=== PATIENT | male | born 1965 | race Caucasian/White ===

== ENCOUNTER → 2023-09-27 06:20 | Day surgery (SDC) | payer BC, SELFPAY | LOC: GI 06:20 | PROVIDERS: ATTENDING PHYSICIAN Internal Medicine Gastroenterology | DX: Z12.11 Encounter for screening for malignant neoplasm of colon (principal); D12.0 Benign neoplasm of cecum; D12.5 Benign neoplasm of sigmoid colon; K57.30 Diverticulosis of large intestine without perforation or abscess without bleeding; D12.8 Benign neoplasm of rectum; K64.8 Other hemorrhoids; Z83.710 Family history of adenomatous and serrated polyps | CPT/HCPCS: 45385; 88305; 71046; 80053; 81003; 83605; 85025; 87040; 93005 ==

== ENCOUNTER 2023-09-28 04:23 | Inpatient (IN) | payer BC, SELFPAY ==
[2023-09-27 21:18] VITALS: BP 146/68
[2023-09-27] MEDS: TYLENOL 1000 MG PO (21:45)
[2023-09-27 21:56] LABS: Urine Albumin Negative (Neg - Trace); Urine Bilirubin Negative (Negative); Urine Character Clear (Clear); Urine Color Yellow; Urine Glucose Negative (Negative); Urine Ketone Negative (Negative); Urine Leukocyte Negative (Negative); Urine Nitrite Negative (Negative); Urine Occult Blood Negative (Negative); Urine Specific Gravity 1.015 (<1.030); Urine Urobilinogen Negative (Neg - 1+)
[2023-09-27 22:30] VITALS: BMI 26.8
[2023-09-27 22:39] VITALS: BP 124/68
--- NOTE | 2023-09-27 22:44 | ED.GENMED ---
History of Present Illness
General
Chief Complaint: Fever
Source: patient and family
Time Seen by Provider: 09/27/23 22:13
Travel History
Have you had any contact with someone who has COVID-19?: No
Do you have any symptoms of coronavirus? Fever > 100 degrees, chills, cough, shortness of breath, sore throat, loss of taste or smell, muscle aches, or headache?: Yes
Symptoms:: fever
History of Present Illness
History of Present Illness:
Pleasant 58-year-old male presents with fever. He had a colonoscopy this morning and had 4 polypectomies. He states that he left feeling 'unwell' but denied fever until this evening. Around 7 PM he developed fever. He does state he had a normal
bowel movement at some point this afternoon. Denies chest pain or shortness of breath. Patient does have a history of hyperlipidemia and glaucoma.
Vital signs are stable. Patient not hypoxic
Nursing note reviewed. I agree with nursing documentation up to this point in time.
Home Meds and allergies reviewed.
NUMBER AND COMPLEXITY OF PROBLEMS ADDRESSED AT THE ENCOUNTER
� Chronic conditions affecting care: Acute problem
� Acute Exacerbation and/or Progression of Chronic Illness:
� Differential Diagnosis includes: Infection from polypectomy, viral syndrome, post polypectomy syndrome
AMOUNT AND/OR COMPLEXITY OF DATA TO BE REVIEWED AND ANALYZED
I performed an independent evaluation of the following and my interpretation is:
EKG: EKG shows normal sinus rhythm rate 86 with normal intervals, normal axis. No evidence of acute ischemia present. There is a right bundle branch block present. No old EKGs available for comparison.
CT:
X-rays: Chest x-ray is negative
Ultrasound:
Laboratory Studies: 13.7 white blood cell count
Other:
Review of other/old records: Colonoscopy from this morning:
Impression: - One 8 mm polyp in the cecum, removed with a hot
snare. Resected and retrieved.
- One 8 mm polyp in the cecum, removed with a hot
snare. Resected and retrieved.
- One 7 mm polyp in the sigmoid colon, removed with a
hot snare. Resected and retrieved.
- One 8 mm polyp in the rectum, removed with a hot
snare. Resected and retrieved.
- Diverticulosis in the entire examined colon.
- Internal hemorrhoids.
- The examination was otherwise normal.
Clinical information was obtained by an independent historian: is present at the bedside
Prescriptions/Medications Considered but not given:
Further testing considered but not performed:
RISK OF COMPLICATIONS AND/OR MORBIDITY OR MORTALITY OF PATIENT MANAGEMENT
Social determinants of health affecting care: Good Social Support
Discussion with other providers: Spoke with computer animator Dr. George. He is aware of pt.
Escalation of care including admission/observation vs risk of discharge considered: Patient to be brought into the hospital service for continued observation.
CRITICAL CARE NOTE:
Total Time (exclusive of procedures):
Update:
Review of Systems
Review of Systems
Allergies reviewed?: Yes
Other source history: family
All Other Systems: ROS reviewed and negative except as documented in HPI and ROS
Constitutional: Reports fever and fatigue
EENT: Reports no symptoms
Respiratory: Reports no symptoms
Cardiac: Reports no symptoms
ABD/GI: Reports abdominal pain; Denies vomiting, diarrhea, constipated, bloody stools or black stools
: Reports no symptoms
Musculoskeletal: Reports no symptoms
Skin: Reports no symptoms
Neurological: Reports no symptoms
Endocrine: Reports no symptoms
Hematologic/Lymphatic: Reports no symptoms
Psychiatric: Reports no symptoms
Phy Exam
General Physical Exam
General Presentation: well appearing and mild distress
General Skin: warm, dry and feels hot
General Habitus: normal
General Mental: alert
General Hydration: appears well hydrated
ENT Exam
ENT Exam: EOMI, pharynx normal, neck supple and normocephalic
Eye Exam
Eye Exam: PERRL, cornea clear and conjunctiva normal
Cardiovascular Exam
Cardiovascular Exam: regular rate/rhythm, no edema, no murmur and normal peripheral pulses
Pulmonary Exam
Pulmonary Exam: lungs clear, no respiratory distress, no rales, no crackles, no rhonchi, no stridor, no wheezing and no cough
Gastrointestinal Exam
Gastrointestinal Exam: normal bowel sounds
Palpation: generalized: Minimal tenderness
Neurological Exam
Neurological Exam: alert, oriented x3, no motor deficits and speech normal
Musculoskeletal Exam
Musculoskeletal Exam: full ROM and no edema
Skin Exam
Skin Exam: normal color, warm/dry, no rash and no petechia
Psychiatric Exam
Psychiatric Exam: normal mood/affect
Course
Orders/Labs/Results
Orders:
Orders
09/27/23 21:25
Electrocardiogram (*1) Urgent
Reason for Study: Other
Other Reason for Exam: Possible Sepsis
Cardiac Monitoring- Treatment ONCE
EKG- Treatment ONCE
IV Insert/Care/Rem.- Treatment PRN
O2 Therapy [RESP] Urgent
Titrate/Wean O2 to maintain O2 sat greater than (%): 93
Special Instructions: TO MAINTAIN CONTINUOUS O2 SATS > OR = 93%
Pulse Ox/cont/shift [RESP] Urgent
Quantity: 1
Special Instructions: CONTINUOUS
09/27/23 21:26
Chest [CR Chest - 2 Views ] Urgent
Comment:
Reason For Exam: fever
09/27/23 21:33
Blood Culture Q30M
JANAY Source: Blood/Venous
Specimen Description:
Comment: FROM 2 SEPARATE SITES
09/27/23 21:39
Urinalysis Reflex To Culture Urgent
Date Specimen was Collected: 09/27/23
Time Specimen was Collected: 21:25
09/27/23 21:41
Acetaminophen [Tylenol] 1,000 mg .ROUTE .STK-MED ONE
09/27/23 21:45
Acetaminophen [Tylenol] 1,000 mg PO NOW STA
09/27/23 22:37
Complete Blood Count/With Diff Urgent
Comprehensive Metabolic Panel Urgent
Lactic Acid Q4H
Comment: ON ICE, CANCEL 2ND ORDER IF FIRST LACTIC ACID LEVEL <2
Blood Culture Q30M
JANAY Source: Blood/Venous
Specimen Description:
Comment: FROM 2 SEPARATE SITES
09/27/23 22:54
0.9% Sodium Chloride 1000 ml [Nss] 1,000 ml IV BOLUS
09/28/23 00:28
COVID-19 Antigen Urgent
Source: Nasal Swab
Influenza A+B Rapid Molecular Urgent
JANAY Source: Nasal Swab
Specimen Description:
09/28/23 01:36
CT Abd/pelvis W Iv Cont Urgent
Comment:
Reason For Exam: post polypectomy fever
09/28/23 01:38
Piperacillin/Tazo 4.5 Gram [Zosyn] 4.5 gram in 100 ml IV NOW
Abnormal Lab Results
09/27/23
22:37
WBC 13.7 H 10^3/uL
(4.8-10.8)
MCH 31.4 H pg
(27.0-31.0)
Abs Immat Gran (auto) 0.1 H 10^3/uL
(0-0.05)
Absolute Neuts (auto) 11.7 H 10^3/uL
(1.4-6.5)
Absolute Lymphs (auto) 0.8 L 10^3/uL
(1.2-3.4)
Absolute Monos (auto) 0.9 H 10^3/uL
(0.1-0.6)
Neutrophils % 85.9 H %
(42.2-75.2)
Lymphocytes % 5.9 L %
(20.5-51.1)
Sodium 133 L mmol/L
(135-145)
Glucose 121 H mg/dl
(70-99)
09/27/23 22:37
09/27/23 22:37
Vital Signs
Initial and Last Documented VS:
Initial Vital Signs
Temp Pulse Resp BP Pulse Ox
101.9 F H 97 20 146/68 97
09/27/23 21:18 09/27/23 21:18 09/27/23 21:18 09/27/23 21:18 09/27/23 21:18
Last Documented Vital Signs
Temp Pulse Resp BP Pulse Ox
98.2 F 92 20 113/71 97
09/28/23 02:13 09/28/23 02:08 09/28/23 02:08 09/28/23 02:08 09/28/23 02:08
*Critical Care Note
Total Time (30-74mins, 75-104mins- exclusive of procedures): Not Applicable
Update Note
Update Note:
CT abdomen and pelvis with IV contrast
IMPRESSION:
Focal cecal wall thickening. Correlate with colonoscopy findings. This may represent an acute colitis or an underlying lesion.
No free air or free fluid.
ED Attending Note
-
Portions of this chart may have been created with voice recognition software.� Occasional wrong word or��sound alike� substitutions may have occurred due to the inherent limitations of voice recognition software.
Discharge Plan
Departure
Patient Disposition: Admit
Date of Disposition: 09/28/23
Time of Disposition: 02:59
Admit to: Med/Surg
Presentation/result/management discussed w/ accepting MD/DO: Hospitalist
Discharge Problem:
Postoperative fever
Prescriptions:
No Action
latanoprost 0.005 % Drops
1 drp OPHTHALMIC (EYE) DAILY
Rx Instructions:
one drop daily into both eyes
Referrals:
Eve Odell DO [Family Provider] -
Interventions
Interventions:
*Risk Screen - Suicide Last Done: 09/27/23 21:18
*General Assessment Last Done: 09/27/23 21:18
*Neglect/Abuse Screening Last Done: 09/27/23 21:18
ED- Fall Risk Assessment Last Done: 09/27/23 21:18
*ED COVID-19 Vaccine History Last Done: 09/27/23 21:18
ED- Neurological Assessment Last Done: 09/27/23 22:48
ED-Skin Assessment Last Done: 09/27/23 22:48
Discharge Date and Time
Print Language: CAPE VERDEAN
[2023-09-27 22:45] LABS: % Basophils 0.3 % (0-2); % Eosinophils 0.6 % (0-6); % Immature Granulocytes 0.4 % (0-0.5); % Lymphocytes 5.9 % (20.5-51.1); % Monocytes 6.9 % (1.7-9.3); % Neutrophils 85.9 % (42.2-75.2); Absolute Eosinophils 0.1 10^3/uL (0-0.7); Absolute Immature Granulocytes 0.1 10^3/uL (0-0.05); Absolute Lymphocytes 0.8 10^3/uL (1.2-3.4); Absolute Monocytes 0.9 10^3/uL (0.1-0.6); Absolute Neutrophils 11.7 10^3/uL (1.4-6.5); Mean Corp Hgb Conc. 34.9 g/dL (33.0-37.0); Mean Corpuscular Hgb 31.4 pg (27.0-31.0); Mean Corpuscular Volume 90.1 fL (80.0-94.0); Nucleated Red Blood Cells % 0 % (-); Platelet Count 217 10^3/uL (130-400); Red Blood Cell Count 4.77 10^6/uL (4.70-6.10); Red Cell Dist. Width 12.6 % (11.5-14.5); White Blood Cell Count 13.7 10^3/uL (4.8-10.8)
[2023-09-27] MEDS: NSS 1000 IV (22:50)
[2023-09-27 22:55] LABS: Lactic Acid 1.2 mmol/L (0.7-2.0)
[2023-09-27 22:59] LABS: ALT (SGPT) 25 U/L (0-50); AST (SGOT) 25 U/L (17-59); Albumin 4.3 g/dl (3.5-5.0); Alkaline Phosphatase 86 U/L (38-126); Blood Urea Nitrogen 20 mg/dl (9-20); Calcium 9.6 mg/dl (8.4-10.2); Carbon Dioxide 26 mmol/L (22-30); Chloride 98 mmol/L (98-107); Estimated Creatinine Clearance 96 ml/min; Glucose 121 mg/dl (70-99); Potassium 3.8 mmol/L (3.5-5.1); Sodium 133 mmol/L (135-145); Total Protein 6.8 g/dl (6.3-8.2); eGFR > 60.00
[2023-09-27 23:00] VITALS: BP 112/65
[2023-09-28] VITALS (13 sets, daily range): BP systolic 91–146; BP diastolic 59–74; BMI 26.5
[2023-09-28 00:56] LABS: COVID-19 Antigen Negative (Negative)
[2023-09-28] MEDS: ZOSYN 100 IV (02:02)
--- NOTE | 2023-09-28 04:05 | HPS.HSE ---
Family Physician
-
Family Physician: Eve Odell
Chief Complaint
-
Fevers / Chills
History of Present Illness
Patient is a 58y M with PMH significant for glaucoma who presents to ED complaining of fevers and chills s/p colonoscopy with polypectomy. Patient underwent colonoscopy on 09/27/23. He had removed two 8mm polyps from the cecum, one 7mm polyp from
the sigmoid and one 8mm polyp from the rectum. All were removed using hot snare. Patient states that he had some vague abdominal fullness / discomfort throughout the day - but did not think much of this. He then developed onset of fevers and
shaking chills around 7 PM. This persisted and he presented to the ED here for evaluation around 9 PM.
Patient reports some mild - moderate abdominal discomfort. No N/V. He moved his bowels this afternoon. No bloody stools noted.
Patient denies any other recent or current complaints including sore throat, cough, urinary complaints, etc.
Medical History
Past Medical History
Past Medical History: Reports Other
Additional Past Medical History:
Glaucoma
Past Surgical History: Reports Other
Additional Past Surgical History:
Appendectomy
Social History
Tobacco: Non-smoker
Alcohol: Occasional
Drug: None
Family History
Family History: Other (Mother: Skin cancer Father: CAD, Bone cancer)
Allergies / Home Medications
Allergies reflects when Allergies were last updated in [facility].
Home Medications with original date entered in [facility]
Allergy/Medication List:
Allergies
Allergy/AdvReac Type Severity Reaction Status Date / Time
No Known Allergies Allergy Verified 09/27/23 21:18
Home Medications
latanoprost 0.005 % eye drops 1 drp ophthalmic (eye) DAILY 09/28/23
Review of Systems
-
History Source: Patient
A 12 point ROS was completed and negative except as noted: Yes
Constitutional: Reports Fever, Fatigue and Chills
EENT: Denies Sore Throat
Respiratory: Denies Cough or Trouble Breathing
Cardiac: Reports Diaphoresis; Denies Chest Pain or Palpitations
Abdomen/GI: Reports Abdominal Pain; Denies Nausea, Vomiting, Diarrhea, Constipated, Bloody Stools or Black Stools
: Denies Dysuria, Frequency or Flank Pain
Musculoskeletal: Denies Joint Pain or Edema
Neurological: Denies Dizzy or Headache
Psych: Denies Depression or Anxiety
Physical Exam
Vital Signs
Vital Signs
Temp Pulse Resp BP Pulse Ox
98.2 F 77 14 91/64 90
09/28/23 02:13 09/28/23 03:00 09/28/23 03:00 09/28/23 03:00 09/28/23 03:00
Physical Exam
General: Other (58y M in no acute distress.)
HEENT: Moist mucous membranes and PERRLA
Respiratory: Clear; No Wheezes, Rales or Rhonchi
Cardiac: S1/S2 and Regular Rhythm; No Murmur
GI: Other (Soft, pos tenderness - especially in the RLQ. No rebound / guarding.)
Musculoskeletal: No Clubbing, No Cyanosis and No Edema
Neuro: AO x 3
Laboratory Results
-
09/27/23 22:37
09/27/23 22:37
Laboratory Results
Lactic Acid Cancelled 09/28/23 01:30
Total Bilirubin 1.0 mg/dl (0.2-1.3) 09/27/23 22:37
AST 25 U/L (17-59) 09/27/23 22:37
ALT 25 U/L (0-50) 09/27/23 22:37
Alkaline Phosphatase 86 U/L (38-126) 09/27/23 22:37
Impression/Plan
-
A/P: Patient is a 58y M with PMH significant for glaucoma who presents to ED complaining of fevers / chills s/p colonoscopy with polypectomy this AM.
Post-Polypectomy Fever
- Admit for further evaluation and treatment.
- ? med effect / anesthesia reaction versus postpolypectomy syndrome.
- Onset of symptoms / timing is consistent with PPCS.
- Patient does not endorse significant pain, but is quite tender on exam in the RLQ.
- CT without evidence of perforation. Some thickening noted in cecum region.
- NPO, IVF support. Cover with IV abx.
- GI evaluation.
- Follow for clinical improvement.
- Follow fever curve.
DVT Prophylaxis: SCDs
Code Status: Full
[2023-09-28] MEDS: NSS 1000 IV (05:48)
[2023-09-28 06:14] LABS: Hematocrit 39.8 % (39.0-52.0); Mean Corp Hgb Conc. 35.2 g/dL (33.0-37.0); Mean Corpuscular Hgb 30.9 pg (27.0-31.0); Mean Corpuscular Volume 87.9 fL (80.0-94.0); Mean Platelet Volume 9.2 fL (7.4-10.4); Platelet Count 216 10^3/uL (130-400); Red Blood Cell Count 4.53 10^6/uL (4.70-6.10); Red Cell Dist. Width 12.7 % (11.5-14.5); White Blood Cell Count 17.3 10^3/uL (4.8-10.8)
[2023-09-28 06:40] LABS: Blood Urea Nitrogen 14 mg/dl (9-20); Carbon Dioxide 24 mmol/L (22-30); Chloride 105 mmol/L (98-107); Estimated Creatinine Clearance 109 ml/min; Glucose 96 mg/dl (70-99); Potassium 3.8 mmol/L (3.5-5.1); Sodium 135 mmol/L (135-145); eGFR > 60.00
--- NOTE | 2023-09-28 08:17 | CON.GI ---
Consultation
-
Date/Time Consultation Performed: 09/28/23
Performing Provider: Flako George MD
Reason for Consultation: fever post-colonoscopy
Medical History
Chief Complaint / HPI
Chief Complaint: fever
History of Present Illness:
The patient is a 58-year-old male with past medical history as noted who presents with fever. I did his routine screening colonoscopy yesterday which showed several polyps, including 2 in the cecum requiring cautery though were not large and
overall was easily accomplished. Afterwards the patient was feeling well though started to feel chilled through the afternoon and then had fever up to one 1.9 prompting him to come to the emergency room. He has had some mild vague abdominal
discomfort though nothing severe. He denies any melena, hematochezia, fever this morning or overnight. He had no other GI issues prior to this. On admission he had mild leukocytosis with white count of 13.7, CT scan with some mild thickening in
the cecum though otherwise was unremarkable. This morning he is still feeling okay, some minimal discomfort in the right lower quadrant though no fevers overnight, nausea or vomiting.
Past Medical History
Past Medical History: Other (glaucoma)
Past Surgical History: Appendectomy
Social History
Tobacco: Non-Smoker
Alcohol: Occasional
Family History
Family History: Reviewed & Not Pertinent
Allergies / Home Medications
Allergy/AdvReac Type Severity Reaction Status Date / Time
No Known Allergies Allergy Verified 09/27/23 21:18
�Medication �Instructions �Recorded
ascorbic acid (vitamin C) 1,000 mg 1,000 mg PO BID 09/28/23
tablet
latanoprost 0.005 % eye drops 1 drp BOTH EYES HS 09/28/23
meloxicam 15 mg tablet 15 mg PO DAILY PRN mild pain 09/28/23
Review of Systems
-
All other systems: A 12 pt ROS was Negative except as stated above in HPI
Vital Signs
Temp Pulse Resp BP Pulse Ox
98.5 F 76 22 102/68 97
09/28/23 06:35 09/28/23 06:30 09/28/23 06:30 09/28/23 06:00 09/28/23 06:30
Physical Exam
Exam
General: NAD
HEENT: MMM, anicteric, no lymphadenopathy
Heart: Regular, no murmurs
Lungs: CTA bilaterally
Abdomen: normal bowel sounds, soft, mild right lower quadrant tenderness, no rebound or guarding, no masses, bruits or ascites
Extremeties: no edema
Skin: no rashes
Results
WBC 17.3 10^3/uL (4.8-10.8) H 09/28/23 05:59
Hgb 14.0 g/dL (13.0-18.0) 09/28/23 05:59
Hct 39.8 % (39.0-52.0) 09/28/23 05:59
MCV 87.9 fL (80.0-94.0) 09/28/23 05:59
Plt Count 216 10^3/uL (130-400) 09/28/23 05:59
Absolute Neuts (auto) 11.7 10^3/uL (1.4-6.5) H 09/27/23 22:37
Sodium 135 mmol/L (135-145) 09/28/23 05:59
Potassium 3.8 mmol/L (3.5-5.1) 09/28/23 05:59
Chloride 105 mmol/L (98-107) 09/28/23 05:59
Carbon Dioxide 24 mmol/L (22-30) 09/28/23 05:59
BUN 14 mg/dl (9-20) 09/28/23 05:59
Creatinine 0.8 mg/dL (0.7-1.3) 09/28/23 05:59
Calcium 9.0 mg/dl (8.4-10.2) 09/28/23 05:59
Total Bilirubin 1.0 mg/dl (0.2-1.3) 09/27/23 22:37
AST 25 U/L (17-59) 09/27/23 22:37
ALT 25 U/L (0-50) 09/27/23 22:37
Alkaline Phosphatase 86 U/L (38-126) 09/27/23 22:37
Diagnostic Image Results:
CT:
IMPRESSION:
There is thickening of the wall of the cecum. Please correlate with recent colonoscopy and the site of polypectomy. There is no evidence of perforation.
Prior GI Procedures:
EGD:
Colonoscopy:
09/27/23
Impression: - One 8 mm polyp in the cecum, removed with a hot
snare. Resected and retrieved.
- One 8 mm polyp in the cecum, removed with a hot
snare. Resected and retrieved.
- One 7 mm polyp in the sigmoid colon, removed with a
hot snare. Resected and retrieved.
- One 8 mm polyp in the rectum, removed with a hot
snare. Resected and retrieved.
- Diverticulosis in the entire examined colon.
- Internal hemorrhoids.
- The examination was otherwise normal.
Assessment / Plan
-
1. Fever/mild right lower quadrant pain: With thickening noted on CT scan, though no perforation, exam is otherwise benign, likely mild post polypectomy syndrome. Given his mild increase in leukocytosis today would continue antibiotics, await
blood cultures, clear liquids today and continue observation. Assuming he continues to do well and improves then would be okay to advance diet and DC tomorrow to complete a short course of antibiotics. Will follow-up on blood cultures and trend
labs.
-
-
Thank you for consultation and allowing me to participate in the patient's care. Please call the product consultant GI physician during the after hours with any questions or concerns.
--- NOTE | 2023-09-28 08:46 | W.PN.HOSP.TC ---
Today's Communication/Plan
-
clears/abxs
transfer to med/surg
Assessment / Plan
Assessment / Plan
pt is a 58 year old male
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 Some thickening noted in cecum region--clears--cont zosyn--apprec GI eval--plan for d/c likely tomorrow AM
DVT Prophylaxis: SCDs
Code Status: Full
Anticipated Discharge: Within 24 hours
Subjective/Interval History
-
Date of Service: September 28, 2023
pt feeling OK--seen by GI
Objective Data
-
Labs:
Laboratory Results
09/27/23 09/28/23
22:37 05:59
WBC 13.7 H 17.3 H
Hgb 15.0 14.0
Hct 43.0 39.8
Plt Count 217 216
Sodium 133 L 135
Potassium 3.8 3.8
Chloride 98 105
Carbon Dioxide 26 24
BUN 20 14
Creatinine 0.9 0.8
Glucose 121 H 96
Calcium 9.6 9.0
Total Bilirubin 1.0
AST 25
ALT 25
Alkaline Phosphatase 86
Vital Signs:
max temp for 24 hours
09/27/23
21:18
Temp 101.9 F H
Vital Signs
Temp Pulse Resp BP Pulse Ox
98.7 F 87 19 99/67 98
09/28/23 08:33 09/28/23 08:31 09/28/23 08:31 09/28/23 07:00 09/28/23 07:00
Review of Systems
-
All other systems: Reviewed and negative
Physical Exam
-
General: Well Developed, Well Nourished and No Apparent Distress
HEENT: Normocephalic and Atraumatic
Respiratory: Clear to Auscultation; Negative Wheezes or Rhonchi
Cardiac: Regular Rhythm and S1/S2; Negative Murmur
GI: Soft, Nondistended, Normal Bowel Sounds and Tender (minimal tender RLQ--no guarding or rebound)
Musculoskeletal: No Clubbing, No Cyanosis and No Edema
Skin: Warm
Neuro: Awake and Alert
Psych: Calm
[2023-09-28] MEDS: ZOSYN 50 IV ×3 (09:27→20:06)
[2023-09-28] MEDS: NSS (PRESERVATIVE FREE) 10 ML IV (09:27)
[2023-09-28] MEDS: XALATAN OPHTHALMIC SOLUTION 1 DROP OPHTH (09:27)
[2023-09-28] MEDS: PROTONIX IV 40 MG IV (09:27)
--- NOTE | 2023-09-28 09:41 | PTCARENOTE ---
pt aaox3. sates no pain or sob. room air breath sounds clear. ivf running as ordered. active bowel sounds.
--- NOTE | 2023-09-28 11:15 | CM ---
CM reviewed medical records. CM confirmed demographics. Patient lives independently. Patient denies history of VN< SNF or DME. patient uses [facility] in [place]. Patient is active with is PCP>
PLAN: Home no needs.
--- NOTE | 2023-09-28 19:24 | PTCARENOTE ---
Patient admitted from ER into room 412-02. Oriented to room, use of call lundy, television and bed controls. Patient verbalizes understanding of teaching. Vital signs stable. Patient states he has some tenderness upon palpation of abdomen but denies
pain. Reviewed plan of care with patient - IV antibiotics, labs in morning, and telemetry monitoring. Patient verbalizes understanding and denies questions at this time.
[2023-09-29] MEDS: ZOSYN 50 IV ×2 (01:48→07:37)
[2023-09-29 03:10] VITALS: BP 104/65
[2023-09-29 07:01] LABS: Hematocrit 38.1 % (39.0-52.0); Hemoglobin 13.2 g/dL (13.0-18.0); Mean Corp Hgb Conc. 34.6 g/dL (33.0-37.0); Mean Corpuscular Hgb 31.1 pg (27.0-31.0); Mean Corpuscular Volume 89.9 fL (80.0-94.0); Mean Platelet Volume 9.3 fL (7.4-10.4); Platelet Count 185 10^3/uL (130-400); Red Blood Cell Count 4.24 10^6/uL (4.70-6.10); Red Cell Dist. Width 12.7 % (11.5-14.5); White Blood Cell Count 8.4 10^3/uL (4.8-10.8)
[2023-09-29 07:28] LABS: Blood Urea Nitrogen 8 mg/dl (9-20); Calcium 8.7 mg/dl (8.4-10.2); Carbon Dioxide 28 mmol/L (22-30); Chloride 106 mmol/L (98-107); Estimated Creatinine Clearance 109 ml/min; Glucose 94 mg/dl (70-99); Potassium 3.5 mmol/L (3.5-5.1); Sodium 136 mmol/L (135-145); eGFR > 60.00
[2023-09-29] MEDS: NSS (PRESERVATIVE FREE) 10 ML IV (07:36)
[2023-09-29] MEDS: PROTONIX IV 40 MG IV (07:37)
[2023-09-29] MEDS: XALATAN OPHTHALMIC SOLUTION 1 DROP OPHTH (07:37)
[2023-09-29 07:50] VITALS: BP 122/74
--- NOTE | 2023-09-29 08:53 | W.PN.GI.CBS2 ---
Today's Communication / Plan
-
Please see assessment plan for details.
Assessment / Plan
-
1. Fever/mild right lower quadrant pain: With thickening noted on CT scan, though no perforation, exam is otherwise benign, likely mild post polypectomy syndrome. His leukocytosis has resolved, as well as his tenderness, overall doing well. At
this point will advance diet and is okay to DC from a GI standpoint, would finish 2 more days of oral antibiotics and low residue diet for the next couple of days.
Subjective
Subjective
Date of Service: September 29, 2023
Patient feeling much better, no fevers overnight, no abdominal pain, tolerating clears without difficulty.
Objective
Data Reviewed
Laboratory Data:
Laboratory Results
09/29/23 06:32
09/29/23 06:32
Laboratory Results
Magnesium 2.0 mg/dl (1.6-2.3) 09/29/23 06:32
Total Bilirubin 1.0 mg/dl (0.2-1.3) 09/27/23 22:37
AST 25 U/L (17-59) 09/27/23 22:37
ALT 25 U/L (0-50) 09/27/23 22:37
Alkaline Phosphatase 86 U/L (38-126) 09/27/23 22:37
Vital Signs and I&O:
Vital Signs
Temp Pulse Resp BP Pulse Ox
98 F 73 16 122/74 96
09/29/23 07:50 09/29/23 07:50 09/29/23 07:50 09/29/23 07:50 09/29/23 07:50
I&O
09/28/23 09/29/23 09/30/23
06:59 06:59 06:59
Intake Total 980 / 980
Output Total 950 / 950
Balance 30 / 30
Physical Exam
Physical Exam
General: NAD
Abdomen: normal bowel sounds, soft, no tenderness, no masses or bruits, no ascites
--- NOTE | 2023-09-29 10:48 | W.PN.HOSP.TC ---
Today's Communication/Plan
-
d/c
Assessment / Plan
Assessment / Plan
pt is a 58 year old male
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 Some thickening noted in cecum region--clears--stop zosyn, change to augmentin x 2 more days per GI--apprec GI eval--d/c
DVT Prophylaxis: SCDs
Code Status: Full
Anticipated Discharge: Today
Subjective/Interval History
-
Date of Service: September 29, 2023
pt good to go home
Objective Data
-
Labs:
Laboratory Results
09/29/23
06:32
WBC 8.4
Hgb 13.2
Hct 38.1 L
Plt Count 185
Sodium 136
Potassium 3.5
Chloride 106
Carbon Dioxide 28
BUN 8 L
Creatinine 0.8
Glucose 94
Calcium 8.7
Vital Signs:
max temp for 24 hours
09/28/23
19:55
Temp 98.5 F
Vital Signs
Temp Pulse Resp BP Pulse Ox
98 F 73 16 122/74 96
09/29/23 07:50 09/29/23 07:50 09/29/23 07:50 09/29/23 07:50 09/29/23 07:50
I&O
09/28/23 09/29/23 09/30/23
06:59 06:59 06:59
Intake Total 980 / 980
Output Total 950 / 950
Balance 30 / 30
Review of Systems
-
All other systems: Reviewed and negative
Physical Exam
-
General: Well Developed, Well Nourished and No Apparent Distress
HEENT: Normocephalic and Atraumatic
Respiratory: Clear to Auscultation; Negative Wheezes or Rhonchi
Cardiac: Regular Rhythm and S1/S2; Negative Murmur
GI: Soft, Nontender, Nondistended and Normal Bowel Sounds
Musculoskeletal: No Clubbing, No Cyanosis and No Edema
Neuro: Awake
[2023-09-29 11:19] VITALS: BP 127/82
--- NOTE | 2023-09-29 13:20 | W.DCSUMMARY ---
Discharge Summary
Discharge Data
Date of Admission: 09/28/23
Date of Discharge: 09/29/23
-
Pending Results: No
Hospital Course
Primary care physician : Eve Odell
Principal Discharge diagnosis : Post polypectomy syndrome
Chronic Discharge diagnosis : None
Hospital Course : Patient is a 58-year-old male who had a colonoscopy on 09/27/2023. 2 polyps were removed from the cecum and one polyp from the sigmoid colon, and 1 polyp from the rectum. Patient presented with fever and chills after his
polypectomy. All were removed using a hot snare. Patient stated that he had some vague abdominal discomfort throughout the day but did not think too much of it. Around 7 PM he developed fevers and shaking chills. Patient was admitted.
Patient was admitted and seen in consultation by gastroenterology. He was started on IV Zosyn and given clears. Diet was advanced today. Patient is much improved and is stable for discharge. He has been cleared for discharge by GI. White count
on admission was 13.7, peaked at 17.3, and is normal at the day of discharge. He will complete 2 more days of oral antibiotics in the form of Augmentin.
Patient is stable for discharge home at this time. If there are any questions regarding this dictation or his hospital stay, please not hesitate to call. Our office number is [phone].
Important imaging findings :
CT SCAN ABDOMEN/PELVIS IMPRESSION:
There is thickening of the wall of the cecum. Please correlate with recent colonoscopy and the site of polypectomy. There is no evidence of perforation.
Discharge Plan
-
Patient Disposition: Home (Routine Discharge)
Discharge Diagnosis/Procedures: Post polypectomy syndrome
Condition: Good
Diet: As tolerated and Regular
Activity: As tolerated
Driving Restrictions: As prior to admission
Bathing Restrictions: None
Referrals:
Eve Odell, DO [Family Provider] - in less than 1 week
Prescriptions:
New
acetaminophen 325 mg Tablet
650 mg PO Q4HPRN PRN (Reason: Mild Pain / Temp > 101) Qty: 0 0RF
amoxicillin-pot clavulanate 500-125 mg tablet
1 tab PO Q12H Qty: 4 0RF
Continued
latanoprost 0.005 % Drops
1 drp BOTH EYES HS
ascorbic acid (vitamin C) 1,000 mg Tablet
1,000 mg PO BID
meloxicam 15 mg Tablet
15 mg PO DAILY PRN (Reason: mild pain)
atorvastatin 10 mg tablet
10 mg PO DAILY
Discharge Orders:
Discharge Patient (As Directed); Ordered 09/29/23
Ordered By: Rema Baker
Discharge Date and Time
Discharge Date/Time: 09/29/23 11:34
Print Language: MOROCCAN
== END 2023-09-29 11:34 | disposition home or self-care (01) | DRG 395 ==
LOC: 4 EAST ACU 04:23
PROVIDERS: Emergency Medicine; ADMITTING PHYSICIAN Hospitalist; ATTENDING PHYSICIAN Internal Medicine; CONSULT PHYSICIAN Internal Medicine Gastroenterology; EMERGENCY PHYSICIAN Student in an Organized Health Care Education/Training Program; FAMILY PHYSICIAN Internal Medicine
DX: K91.89 Other postprocedural complications and disorders of digestive system (principal); Y83.8 Other surgical procedures as the cause of abnormal reaction of the patient, or of later complication, without mention of misadventure at the time of the procedure
CPT/HCPCS: 71046; 74177; 80048; 80053; 81003; 83605; 83735; 85025; 85027; 87040; 87502; 87811; 93005; 96361; 96365; 99285; Q9967

== ENCOUNTER → 2024-10-07 07:24 | Outpatient (REF) | payer BC, SELFPAY | LOC: HWRCS 07:24 | PROVIDERS: ATTENDING PHYSICIAN Internal Medicine Cardiovascular Disease; FAMILY PHYSICIAN Internal Medicine | DX: R94.31 Abnormal electrocardiogram [ECG] [EKG] (principal) | CPT/HCPCS: 93306 ==

== ENCOUNTER → 2024-10-13 07:43 | Outpatient (REF) | payer BC, SELFPAY | LOC: HWRCS 07:43 | PROVIDERS: ATTENDING PHYSICIAN Internal Medicine Cardiovascular Disease; FAMILY PHYSICIAN Internal Medicine | DX: R94.31 Abnormal electrocardiogram [ECG] [EKG] (principal) | CPT/HCPCS: 78452; 93017; A9500 ==

== ENCOUNTER 2025-03-09 09:42 | Emergency (ER) | payer BC, SELFPAY ==
[2025-03-09 09:48] VITALS: BP 106/69
--- NOTE | 2025-03-09 11:04 | ED.GENMED ---
History of Present Illness
<MARI Carlisle - Last Filed: 03/10/25 09:44>
General
Chief Complaint: Fainting/Passed Out
Source: patient and spouse
Exam Limitations: none
Time Seen by Provider: 03/09/25 10:38
Nursing documentation reviewed up to this point in time: agreed with
History of Present Illness
History of Present Illness:
59 yr old male with past medical history of known' left bundle branch 'presents to the ER for evaluation. Patient has had 2 episodes of syncope, last 4 days ago and Sunday 2 days ago. With each episode he reports he felt maybe a
little lightheaded right before the episode occurred however when he woke up he was in the middle of a field and could not recall where he was. 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 He does not recall any
chest pain prior to episode. He does report that he checked his Apple Watch and it read heart rate 38 after episode (after episode ) .
He has having headache for the past 2 days and has had runny nose and congestion and did have a fever of 99 last night and 100.6 this morning
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 One of the dogs recently from what they believed to be was a Lyme associated illness.
He has been eval by DR Jauregui several months ago for evaluation of left bundle branch block and normal echocardiogram./stress. He is supposed to have a calcium score however did not have that yet.
Phy Exam
<MARI Carlisle - Last Filed: 03/10/25 09:44>
General Physical Exam
General Presentation: no apparent distress
General age: appears stated age
General Skin: warm and dry
General Habitus: normal
General Mental: alert
General Hydration: appears well hydrated
Cardiovascular Exam
Cardiovascular Exam: regular rate/rhythm, no murmur and normal peripheral pulses
Pulmonary Exam
Pulmonary Exam: lungs clear and no respiratory distress
Neurological Exam
Neurological Exam: alert and oriented x3
Musculoskeletal Exam
Musculoskeletal Exam: full ROM
Skin Exam
Skin Exam: normal color and warm/dry
Psychiatric Exam
Psychiatric Exam: normal mood/affect
Sepsis
<MARI Carlisle - Last Filed: 03/10/25 09:44>
Sepsis Screen
Sepsis Screen: Sepsis Ruled Out
Date: 03/10/25
Time: 09:43
<Gloria Armas MD - Last Filed: 03/09/25 15:59>
Sepsis Screening
Sepsis Assessment: Sepsis Ruled Out
Sepsis Screen
Sepsis Screen: Sepsis Ruled Out
Date: 03/09/25
Time: 15:59
Course
<MARI Carlisle - Last Filed: 03/10/25 09:44>
Orders/Labs/Results
Orders:
Orders
03/09/25 09:55
Electrocardiogram (*1) Urgent
Reason for Study: Chest Pain
EKG- Treatment ONCE
03/09/25 10:56
Cardiac Monitoring- Treatment ONCE
03/09/25 11:16
COVID-19 Antigen Urgent
Source: Nasal Swab
Complete Blood Count/With Diff Urgent
Comprehensive Metabolic Panel Urgent
Lyme Progressive Urgent
TSH Urgent
Influenza A+B Rapid Molecular Urgent
JANAY Source: Nasal Swab
Specimen Description:
03/09/25 14:04
CARDIOLOGY CONSULT Urgent
Consulting Provider: Chelita Cabrera
Was physician already notified: Yes
Reason for consult: syncope x2
03/09/25 15:58
Doxycycline [Vibramycin] 100 mg PO NOW STA
Abnormal Lab Results
03/09/25
11:16
Absolute Neuts (auto) 7.7 H 10^3/uL
(1.4-6.5)
Absolute Lymphs (auto) 0.8 L 10^3/uL
(1.2-3.4)
Neutrophils % 84.2 H %
(42.2-75.2)
Lymphocytes % 8.7 L %
(20.5-51.1)
Sodium 133 L mmol/L
(135-145)
Glucose 107 H mg/dl
(70-99)
03/09/25 11:16
03/09/25 11:16
Vital Signs
Initial and Last Documented VS:
Initial Vital Signs
Temp Pulse Resp BP Pulse Ox
99.6 F 81 16 106/69 97
03/09/25 09:48 03/09/25 09:48 03/09/25 09:48 03/09/25 09:48 03/09/25 09:48
Last Documented Vital Signs
Temp Pulse Resp BP Pulse Ox
98.9 F 72 22 115/77 97
03/09/25 16:30 03/09/25 15:30 03/09/25 15:30 03/09/25 15:00 03/09/25 15:30
<Taran Garcia, DO - Last Filed: 03/09/25 12:05>
Orders/Labs/Results
Orders:
Orders
03/09/25 09:55
Electrocardiogram (*1) Urgent
Reason for Study: Chest Pain
EKG- Treatment ONCE
03/09/25 10:56
Cardiac Monitoring- Treatment ONCE
03/09/25 11:16
COVID-19 Antigen Urgent
Source: Nasal Swab
Complete Blood Count/With Diff Urgent
Comprehensive Metabolic Panel Urgent
Lyme Progressive Urgent
TSH Urgent
Influenza A+B Rapid Molecular Urgent
JANAY Source: Nasal Swab
Specimen Description:
03/09/25 14:04
CARDIOLOGY CONSULT Urgent
Consulting Provider: Chelita Cabrera
Was physician already notified: Yes
Reason for consult: syncope x2
03/09/25 15:58
Doxycycline [Vibramycin] 100 mg PO NOW STA
Abnormal Lab Results
03/09/25
11:16
Absolute Neuts (auto) 7.7 H 10^3/uL
(1.4-6.5)
Absolute Lymphs (auto) 0.8 L 10^3/uL
(1.2-3.4)
Neutrophils % 84.2 H %
(42.2-75.2)
Lymphocytes % 8.7 L %
(20.5-51.1)
Sodium 133 L mmol/L
(135-145)
Glucose 107 H mg/dl
(70-99)
03/09/25 11:16
03/09/25 11:16
Vital Signs
Initial and Last Documented VS:
Initial Vital Signs
Temp Pulse Resp BP Pulse Ox
99.6 F 81 16 106/69 97
03/09/25 09:48 03/09/25 09:48 03/09/25 09:48 03/09/25 09:48 03/09/25 09:48
Last Documented Vital Signs
Temp Pulse Resp BP Pulse Ox
98.9 F 72 22 115/77 97
03/09/25 16:30 03/09/25 15:30 03/09/25 15:30 03/09/25 15:00 03/09/25 15:30
<Gloria Armas MD - Last Filed: 03/09/25 15:59>
Orders/Labs/Results
Orders:
Orders
03/09/25 09:55
Electrocardiogram (*1) Urgent
Reason for Study: Chest Pain
EKG- Treatment ONCE
03/09/25 10:56
Cardiac Monitoring- Treatment ONCE
03/09/25 11:16
COVID-19 Antigen Urgent
Source: Nasal Swab
Complete Blood Count/With Diff Urgent
Comprehensive Metabolic Panel Urgent
Lyme Progressive Urgent
TSH Urgent
Influenza A+B Rapid Molecular Urgent
JANAY Source: Nasal Swab
Specimen Description:
03/09/25 14:04
CARDIOLOGY CONSULT Urgent
Consulting Provider: Chelita Cabrera
Was physician already notified: Yes
Reason for consult: syncope x2
03/09/25 15:58
Doxycycline [Vibramycin] 100 mg PO NOW STA
Abnormal Lab Results
03/09/25
11:16
Absolute Neuts (auto) 7.7 H 10^3/uL
(1.4-6.5)
Absolute Lymphs (auto) 0.8 L 10^3/uL
(1.2-3.4)
Neutrophils % 84.2 H %
(42.2-75.2)
Lymphocytes % 8.7 L %
(20.5-51.1)
Sodium 133 L mmol/L
(135-145)
Glucose 107 H mg/dl
(70-99)
03/09/25 11:16
03/09/25 11:16
Vital Signs
Initial and Last Documented VS:
Initial Vital Signs
Temp Pulse Resp BP Pulse Ox
99.6 F 81 16 106/69 97
03/09/25 09:48 03/09/25 09:48 03/09/25 09:48 03/09/25 09:48 03/09/25 09:48
Last Documented Vital Signs
Temp Pulse Resp BP Pulse Ox
98.9 F 72 22 115/77 97
03/09/25 16:30 03/09/25 15:30 03/09/25 15:30 03/09/25 15:00 03/09/25 15:30
<MARI Carlisle - Last Filed: 03/10/25 09:44>
MDM/Problems Addressed
Differential Diagnosis Includes:
Not limited to syncope, electrolyte abnormality, arrhythmia viral syndrome, COVID, flu
MDM/Problems Addressed:
Patient is a 59-year-old male presented to the ER for evaluation of syncope x 2. Patient was noted to have a low heart rate of 38 via his Apple Watch at the time of the first syncopal episode. Patient has had intermittent low-grade fever since
yesterday. Patient presents awake alert no acute distress he was monitored here heart rate has been between the 60s and 80s. He is afebrile with a normal white count negative COVID-negative flu. Normal electrolytes.
Patient was eval by ED physician. Patient mentioned on arrival he has a history of left bundle branch block however and previously was seen by [facility] Dr. Jauregui however noted to have a right bundle branch block here in the
ER. he had a nml echo and stress test however is still due to have a calcium score
Case reviewed with cardiology Dr. Cabrera.
5725: Patient was evaluate by cardiology. As per cardiology patient does have a right bundle and not left bundle which is what he previously stated on arrival(his sister has a right bundle)
Patient has an outpatient appointment coming up with [facility] they will place patient monitor at this time but do feel that patient likely had syncopal episode from dehydration working outside and recent viral syndrome. He has remained in normal
sinus rhythm here in the ER no episodes of bradycardia or arrhythmia.
Chronic conditions affecting care:
bundle branch block
<MARI Carlisle - Last Filed: 03/10/25 09:44>
*Pulse Oximetry
SaO2: 97
Oxygen Mode of Delivery: Room air
Patient hypoxic: no
*EKG
Interpreted by ED Provider?: Yes
Heart Rate: 69
Rate: normal
Rhythm: sinus
QRS Pattern: right bundle branch block
Ischemia: non-specific ST changes
Data Reviewed
Review of Other/Old Records Reveals: Radiology Studies and Other (echo)
<Gloria Armas MD - Last Filed: 03/09/25 15:59>
*Critical Care Note
Total Time (30-74mins, 75-104mins- exclusive of procedures): Not Applicable
ED Attending Note
<MARI Carlisle - Last Filed: 03/10/25 09:44>
-
Portions of this chart may have been created with voice recognition software.� Occasional wrong word or��sound alike� substitutions may have occurred due to the inherent limitations of voice recognition software.
<Taran Garcia DO - Last Filed: 03/09/25 12:05>
ED Attending Note
Patient seen and examined by attending physician: Yes
I performed the substantive portion of visit, reviewed & personally made and approve the management plan that is documented in note by myself or SILVIA.: Yes
ED Attending Note:
I evaluated patient at bedside. While in [place] without easy access to medical care, patient had a syncopal event 4 days ago. At that time he used an Apple Watch which indicated that he had heart rates in the 30s. He takes timolol eyedrops
but does not take any oral negative chronotropic. He had another syncopal event 2 days ago but his heart rate was not checked. Currently he is normotensive with normal rate. He has a known left bundle branch block. He recently saw Dr. Jauregui
and had an echo recently that was unremarkable. Calcium scoring was recommended for further outpatient testing. Cardiology to be notified today.
<Gloria Armas MD - Last Filed: 03/09/25 15:59>
ED Attending Note
ED Attending Note:
I evaluated patient at bedside. While in [place] without easy access to medical care, patient had a syncopal event 4 days ago. At that time he used an Apple Watch which indicated that he had heart rates in the 30s. He takes timolol eyedrops
but does not take any oral negative chronotropic. He had another syncopal event 2 days ago but his heart rate was not checked. Currently he is normotensive with normal rate. He has a known left bundle branch block. He recently saw Dr. Jauregui
and had an echo recently that was unremarkable. Calcium scoring was recommended for further outpatient testing. Cardiology to be notified today.
Patient appears well and comfortable. Patient complains of joint pain and low-grade fever. Patient is very concerned he may have Lyme's disease, as he works outside on a regular basis. Decision made to treat him with doxycycline for Lyme's.
Discharge Plan
Departure
Patient Disposition: Home (Routine Discharge)
Date of Disposition: 03/09/25
Time of Disposition: 14:46
Patient with high blood pressure during this ER visit?: No
Condition: Fair
Covid-19: Not Applicable
Discharge Problem:
Syncope
Instructions: Syncope (Fainting) (DC)
Prescriptions:
New
doxycycline hyclate 100 mg capsule
100 mg PO BID Qty: 19 0RF
No Action
latanoprost 0.005 % Drops
1 drp BOTH EYES HS
ascorbic acid (vitamin C) 1,000 mg Tablet
1,000 mg PO BID
meloxicam 15 mg Tablet
15 mg PO DAILY PRN (Reason: mild pain)
atorvastatin 10 mg tablet
10 mg PO DAILY
acetaminophen 325 mg Tablet
650 mg PO Q4HPRN PRN (Reason: Mild Pain / Temp > 101) Qty: 0 0RF
amoxicillin-pot clavulanate 500-125 mg tablet
1 tab PO Q12H Qty: 4 0RF
Referrals:
Arnold Daniel MD [Active, Cardiology]
Eve Odell DO [Family Provider, Internal Medicine]
Activity Restrictions/Additional Instructions:
You were placed on a heart monitor here in the ER. Please follow-up with cardiology as discussed as scheduled
Stay well hydrated.
It is likely you have a viral syndrome your COVID and flu test were negative here in the ER.
Return if any worsening of symptoms
Interventions
Interventions:
*Risk Screen - Suicide Last Done: 03/09/25 09:53
*General Assessment Last Done: 03/09/25 11:18
*Neglect/Abuse Screening Last Done: 03/09/25 11:18
*ED- Fall Risk Assessment Last Done: 03/09/25 16:30
*ED COVID-19 Vaccine History Last Done: 03/09/25 11:18
*Nursing Disposition Last Done: 03/09/25 16:30
ED- Cardiac Assessment Last Done: 03/09/25 13:21
ED- Neurological Assessment Last Done: 03/09/25 13:21
Discharge Date and Time
Discharge Date/Time: 03/09/25 16:30
Print Language: COMORAN
[2025-03-09 11:11] VITALS: BP 109/76
[2025-03-09 11:18] VITALS: BMI 27.3
[2025-03-09 11:36] LABS: Hematocrit 41.4 % (39.0-52.0); Hemoglobin 14.6 g/dL (13.0-18.0); Mean Corp Hgb Conc. 35.3 g/dL (33.0-37.0); Mean Corpuscular Volume 86.1 fL (80.0-94.0); Nucleated Red Blood Cells % 0 % (-); Platelet Count 206 10^3/uL (130-400); Red Cell Dist. Width 12.9 % (11.5-14.5)
[2025-03-09 11:51] LABS: COVID-19 Antigen Negative (Negative)
[2025-03-09 11:55] LABS: ALT (SGPT) 20 U/L (0-50); AST (SGOT) 17 U/L (17-59); Albumin 4.0 g/dl (3.5-5.0); Alkaline Phosphatase 71 U/L (38-126); Blood Urea Nitrogen 10 mg/dl (9-20); Calcium 9.0 mg/dl (8.4-10.2); Carbon Dioxide 26 mmol/L (22-30); Chloride 103 mmol/L (98-107); Estimated Creatinine Clearance 110 ml/min; Glucose 107 mg/dl (70-99); Potassium 4.0 mmol/L (3.5-5.1); Sodium 133 mmol/L (135-145); Total Protein 6.4 g/dl (6.3-8.2); eGFR > 60.00
[2025-03-09 12:00] VITALS: BP 110/72
[2025-03-09 12:18] LABS: TSH 0.83 uIU/ml (0.47-4.68)
[2025-03-09 13:00] VITALS: BP 101/64
[2025-03-09 14:00] VITALS: BP 114/76
--- NOTE | 2025-03-09 14:06 | CON.CAR ---
Addendum entered and electronically signed by Enzo Lorenzo DO 03/09/25 16:23:
I saw and examined the patient.
The Nuclear Technologist's note was reviewed and I agree with the note.
Comment:
Patient is a pleasant 59-year-old male with a history of right bundle branch block, dyslipidemia presenting with recurrent syncope. 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 Both
episodes, he experienced a prodrome of some lightheadedness. 1 episode he felt more lightheaded prior to the syncopal episode. He notes for the past few days surrounding the syncopal episodes, he has experienced subjective and objective fever,
aches, chills, nausea, diarrhea. Additionally, he reports that prior to the episode of syncope on Sunday, he had not been drinking much fluid. He is also concerned about possible tickborne exposure. As mentioned, one of the dogs had
suddenly from tickborne illness. Patient states that he has had Lyme disease twice before and experienced similar symptoms of fever, aches, headache. Patient states he is experiencing the symptoms. He reports no rash.
A/P as below
Unclear etiology for patient's syncope at this time. Currently favoring vasovagal syncope in the setting of acute illness, dehydration, prolonged travel however cannot rule out possible arrhythmic etiology. For now, will have patient avoid driving
until seen in the office. Will have him wear a MCT monitor and monitor his heart rate, rhythm and symptoms. Patient's prior testing including stress testing and echocardiography was normal without evidence of ischemia or heart dysfunction.
Patient's EKG demonstrating right bundle branch block without significant difference from prior ECGs and office ECG. Remaining lab work and evaluation for infectious etiology per emergency department and primary care. For now, encourage adequate
hydration and avoiding triggers such as hot weather/hot climates/hot showers.
Original Note:
Consultation
Consultation Request
Date/Time Consultation Requested: 03/09/2025, 1251
Date/Time Consultation Performed: 03/09/2025, 1400
Requesting Provider: MARI Whelan
Performing Provider: MARI Parker for Dr Lorenzo
Reason for Consultation: syncope
Medical History
-
Chief Complaint: syncope
History of Present Illness:
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 First episode occurred 03/05/2025 when patient was walking in a field as
he was training dogs. He recalls walking, then stopping and standing, then feeling lightheaded then waking up on the ground. There were others around him who witnessed him fall. When he woke up he felt dizzy, disoriented. Someone put an Apple
Watch on him and his heart rate was 35 bpm, which eventually came up to the 60s. He felt back to himself. The second episode occurred on 03/07/2025. He was again out in the field working with dog training when he felt lightheaded. He went down on
23 October and then fell. He again felt dizzy and disoriented when he regained consciousness. No injury. He had traveled to [place] for the weekend to train multiple dogs. He reports trying to stay well-hydrated while he does this work. When
he was driving home from [place] last night he felt achy and had a low-grade fever. He had diarrhea last night. He has felt slightly nasally congested and has had a headache for 2 days. He continued to feel achy and fatigued this morning
with a low-grade fever. He has felt some joint achiness which he attributes to getting older. Of note, one of the 12 dogs he was traveling with on the way home from what was thought to be Lyme associated illness.
He has a history of Lyme's disease in the past x 2. No rashes.
He denies palpitations, chest pain, shortness of breath. No edema, PND, orthopnea.
Patient had recent cardiac evaluation for episode of chest discomfort with stress test and echocardiogram.
Echo 10/07/2024: Normal LV/RV size and function no significant valvular heart disease
Myoview exercise stress test 10/13/2024: Achieved 11 METS on a Saurabh protocol, fixed mid- distal anterior wall and basal inferior septal defect consistent with soft tissue attenuation, no ischemia
ED evaluation:
EKG: Normal sinus rhythm, right bundle branch block
Labs: BUN/creatinine 10/0.8, NA 133, K4.0, TSH 0.83, hemoglobin 14.6, WBC 9.1, platelets 206
COVID-negative
Flu swab negative for influenza A and B
Lyme screen pending
Past medical history:
Right bundle branch block, left posterior fascicular block
Hyperlipidemia
Lyme's disease
Past Medical History
Past Medical History: Other (As above)
Past Surgical History: Appendectomy
Social History
Tobacco: Non-Smoker
Alcohol: Occasional (1 beer socially occasionally)
Drug: None
Personal:
Living: With Family
Employment: Employed
Family History
Family History: Other (Sister with lung left bundle branch block and pacemaker 02/2025, father with history of CAD/CABG)
Allergies / Home Medications
Allergy/AdvReac Type Severity Reaction Status Date / Time
No Known Allergies Allergy Verified 03/09/25 09:48
�Medication �Instructions �Recorded �Confirmed �Type
ascorbic acid (vitamin C) 1,000 mg 1,000 mg PO BID Supplement 09/28/23 09/28/23 History
tablet
latanoprost 0.005 % eye drops 1 drp BOTH EYES HS Eye Condition 09/28/23 09/28/23 History
meloxicam 15 mg tablet 15 mg PO DAILY PRN mild pain 09/28/23 09/28/23 History
acetaminophen 325 mg tablet 650 mg (2 x 325 mg) PO Q4HPRN PRN 09/29/23 Rx
Mild Pain / Temp > 101 #0 tabs
amoxicillin 500 mg-potassium 1 tab PO Q12H #4 tabs 09/29/23 Rx
clavulanate 125 mg tablet
atorvastatin 10 mg tablet 10 mg PO DAILY High Cholesterol 09/29/23 09/29/23 History
Review of Systems
-
History Source: Patient and Family
All other systems: Negative unless noted
Physical Exam
Vital Signs
Temp Pulse Resp BP Pulse Ox
99.6 F 63 16 101/64 97
03/09/25 09:48 03/09/25 13:21 03/09/25 13:21 03/09/25 13:00 03/09/25 13:21
Lab Results
03/09/25 11:16
03/09/25 11:16
GEN: No distress, awake, Ox3
HEENT: supple, anicteric, mmm, no carotid bruit
LUNGS: CTA, no wheezes/rales
CV: Reg, S1/S2,, no murmur
ABD: soft, BS+, NT/ND
EXT: No edema
NEURO: Gross non-focal
SKIN: No rash
Impression / Plan
-
PCP: Eve Odell
Primary drop count associate: Arnold Daniel
Impression:
syncope
RBBB/LPFB
hyperlipidemia
glaucoma
fever
Previous cardiovascular testing:
Echo 10/07/2024: Normal LV/RV size and function no significant valvular heart disease
Myoview exercise stress test 10/13/2024: Achieved 11 METS on a Saurabh protocol, fixed mid- distal anterior wall and basal inferior septal defect consistent with soft tissue attenuation, no ischemia
Plan:
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
with dogs, episodes preceded by brief lightheadedness then fall to ground with awakening disoriented and lightheaded. Patient also with recent low-grade fever, diarrhea, achiness. Recent cardiovascular testing with echo and stress test revealed
structurally normal heart and no evidence of ischemia or scar on stress test.
- Telemetry and EKG personally reviewed: Normal sinus rhythm with no tachy or geovanna arrhythmias, QTc WNL
-Flu and COVID-negative
-Lyme screen pending
-TSH WNL
-Possible that episode is vasovagal in origin in setting of dehydration with illness and recent travel
-Will place 14-day rhythmstar monitor to assess for arrhythmogenic cause of symptoms
-Patient advised to stay well-hydrated
-Patient advised to refrain from driving until monitor is completed/or seen in the office for follow-up.
-He has a previously scheduled appointment with Dr. Daniel on 03/13/2025.
Reviewed with pt and , and ED staff
Data Reviewed
-
EKG: Tracing Personally Visualized and interpreted
Labs: Labs Reviewed by me
Old Records: Reviewed
[2025-03-09 15:00] VITALS: BP 115/77
[2025-03-09 15:22] LABS: Lyme Antibody Screen, EIA Negative (Negative)
[2025-03-09] MEDS: VIBRAMYCIN 100 MG PO (16:05)
== END 2025-03-09 16:30 | disposition home or self-care (01) ==
LOC: EMR 09:42
PROVIDERS: Nurse Practitioner; CONSULT PHYSICIAN Internal Medicine Cardiovascular Disease; EMERGENCY PHYSICIAN Emergency Medicine; FAMILY PHYSICIAN Internal Medicine
DX: R55 Syncope and collapse (principal); I45.2 Bifascicular block; R51.9 Headache, unspecified; E78.5 Hyperlipidemia, unspecified; Z11.52 Encounter for screening for COVID-19
CPT/HCPCS: 99284; 80053; 84443; 85025; 86618; 87502; 87811; 93005